=== PATIENT | male | born 1950 | race Caucasian/White ===

== ENCOUNTER 2017-11-24 21:40 | Inpatient (IN) ==
[2017-11-24] MEDS ORDERED: *HR* OxyCODONE Immed Rel 5 MG TABLET PO PRN (23:48)
[2017-11-24] MEDS ORDERED: D5% in Water 1,000 ML IVC PRN (23:58)
[2017-11-24] MEDS ORDERED: Dextrose Gel 15 GM/37.5 ML TUBE PO PRN ×2 (23:58)
[2017-11-24] MEDS ORDERED: *HR* Dextrose 50 % in Water (Syg) 50 ML SYRINGE IVP PRN (23:58)
[2017-11-25] MEDS: Gabapentin 300 MG CAPSULE PO SCH ×4 (00:22→21:07)
--- NOTE | 2017-11-25 00:32 | Internal Med History&Physical ---
Date of Encounter: 11/24/17 Time of Encounter: 00:26 Assessment and Plan (1) Status post total hip replacement, right Current visit: Yes Status: Acute Patient status post right hip replacement for nondisplaced femoral neck fracture. Surgery per Dr. Herrera 11/17/17. Postoperatively he had acute blood loss anemia, acute kidney injury, and pneumonia. Now he is medically stable and starting therapies and are Rehab Unit. We are monitoring his pain control. Dr. Curry will be consulted as well as the usual therapies. (2) History of pneumonia Current visit: Yes Status: Acute Hit by basilar pneumonia and hypoxia postoperatively. He now has clear lungs and a stable respiratory ortega. She was sent was on Augmentin. Incentive spirometer encouraged. (3) Acute kidney injury Current visit: Yes Status: Resolved Patient sustained acute kidney injury postoperatively. Now his creatinine is back to normal/failure resolved. We will continue to monitor. Avoid nephrotoxic medications. (4) Diabetes mellitus Current visit: Yes Status: Chronic Patient history of diabetes chronically and his last glycohemoglobin was 7.6%. We will continue his current medication dose. His creatinine is back to normal and his metformin is restarted. We will monitor with Accu-Cheks. Diabetic diet. Qualifiers: Diabetes mellitus type: type 2 Diabetes mellitus terminal gauger supervisor insulin use: without terminal gauger supervisor use Diabetes mellitus complication status: with unspecified complications Qualified Code(s): E11.8 - Type 2 diabetes mellitus with unspecified complications (5) Hypertension Current visit: Yes Status: Chronic History of hypertension and is under good control. Continue same medications. Qualifiers: Hypertension type: essential hypertension Qualified Code(s): I10 - Essential (primary) hypertension (6) History of heart artery stent Current visit: Yes Status: Chronic History coronary artery disease and previous coronary stent placed in . He has had no angina or CHF findings. 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 (7) Acute blood loss anemia Current visit: Yes Status: Acute He states he has had at least 3 units of blood transfused. I do not discharge summary from his hospitalization yet. His morning hemoglobin 8.7 up from 7.7 yesterday. We will continue to monitor. No obvious GI bleeding source. Likely postoperative and has extensive bruising in the right lower extremity. (8) DVT prophylaxis Current visit: Yes Status: Acute Patient was transferred to us on no DVT prophylaxis. I will start Lovenox. I will check with Dr. Herrera to see what he likes to use postoperatively for hip replacements Internal Medicine - H&P: HPI Chief complaint: I am here for rehabilitation after my hip replacement Admitted From: Hospital to Hospital Transfer Plans for Post Hospital Care: Home History of present illness: Mr. Gutierrez is a 66 year old male with known history of [id number] diabetes, CAD and previous stent placement, hypertension and sleep apnea is transferred to our rehab facility status post total right hip replacement for hip fracture. When I saw him in 10/20/17 for checkup regarding his diabetes and heart problems. Having severe groin pain told something month earlier. No history of trauma. However, after referral to sports medicine he had an MRI which showed fracture of the right femoral neck. He underwent hip surgery by Dr. Herrera on 11/17/17. However, postoperatively had complications of acute kidney injury with his creatinine going from 1.0 to 2.96 before resolving back to 0.98. He had had ibuprofen prior to surgery and also nephrology felt this was related to his surgery hydration status. He then developed bibasilar pneumonia with fever 102 and hypoxia. He was an IV antibiotics. He made improvement from his acute kidney injury and the pneumonia. He was transferred to our facility last evening have her having had his third unit of blood. He had workup to exclude GI source. He thinks that he is getting along well. He is able to ambulate with a walker. He has occasional spasms particularly the right anterior thigh. He thinks his pain is otherwise been under fairly good control. He denies any cardiac, respiratory, GI or symptoms currently. He lives in a single floor home with about 3 steps to enter. He was recently hired as a beauty school instructor. His history of known heart disease but underwent a stress test prior to being hired for bus physical or this year. Past Med Surg Social Fam HX - Past Medical History Medical history: arthritis, coronary artery disease (Stent placement 2002, another heart catheter 2006, negative nuclear stress test 2017), diabetes, GI bleed, hyperlipidemia, hypertension, myocardial infarction Additional medical history: [place] 2002 with stent placement, sleep apnea-waers CPAP at night Psychiatric history: depression - Past Surgical History Surgical History: appendectomy, herniorrhaphy, orthopedic, other, other ( Coronary artery stent 2002) Additional surgical history: bilat shoulder replacements, left knee replacement - Social History Smoking Status: Former smoker Smokeless Tobacco Status: No Alcohol use: none Drug use: none Occupational status: employed (Employed as a beauty school instructor starting this year) Activity Level: Uses cane/walker ( since his surgery) - Family History Mother Living Status: Age at : 82 Cause of : Colon cancer, breast cancer Hx Family Cancer: Yes (colon cancer) Father Living Status: Age at : 72 Cause of : Heart disease, diabetes Hx Family Endocrine Disorder: Yes (DM) Internal Medicine - H&P: Meds Allopurinol [Zyloprim] 300 mg PO HS 11/17/17 [History] Atorvastatin Calcium [Lipitor] 40 mg PO HS 11/17/17 [History] Citalopram Hydrobromide [Citalopram HBr] 20 mg PO HS 11/17/17 [History] Clopidogrel Bisulfate [Plavix] 75 mg PO HS 11/17/17 [History] Cyclobenzaprine HCl 5 mg PO HS PRN 11/17/17 [History] Gabapentin [Neurontin] 600 mg PO TID 11/17/17 [History] Hyoscyamine Sulfate [Hyoscyamine Sulfate ER] 0.375 mg PO BID 11/17/17 [History] Losartan Potassium [Cozaar] 50 mg PO BID 11/17/17 [History] Metformin HCl [Glucophage] 1,000 mg PO BID 11/17/17 [History] Metoprolol Succinate 100 mg PO DAILY 11/17/17 [History] Multivitamin [One Daily Multivitamin] 1 tab PO DAILY 11/17/17 [History] Pantoprazole Sodium [Protonix] 40 mg PO HS 11/17/17 [History] Docusate [Colace] 100 mg PO BID capsule 11/19/17 [Rx] OxyCODONE Immed Rel [Roxicodone 5 MG] 5 mg PO Q6HR PRN 7 Days #28 tablet [Rx] Amoxicillin/Clavulanate [Augmentin] 500 mg PO Q8H 7 Days #21 tablet 11/22/17 [Rx ] Ferrous Sulfate 325 mg PO BID 11/24/17 [History] 3 Allergy/AdvReac Type Severity Reaction Status Date / Time lisinopril Allergy Cough Verified 08/09/15 07:25 - Constitutional Constitutional: no chills, no fever(s) - EENT Eyes: no change in vision Nose, mouth and throat: no dry mouth, no sore throat - Cardiovascular Cardiovascular ROS IM: no chest pain, no diaphoresis, no dyspnea, no dyspnea on exertion, no irregular heart rhythm, no lightheadedness - Respiratory Respiratory: no dyspnea, no hemoptysis, no dyspnea on exertion, no excessive phlegm production - Gastrointestinal Gastrointestinal: constipation (He has had constipation postoperatively.), no diarrhea, no hematemesis, no hematochezia, no melena - Genitourinary Genitourinary ROS male: no dysuria - Musculoskeletal Additional comments: He has pain in the right lateral hip postoperative area, but he also has pain and spasm in the right anterior thigh. He denies any drainage from his incision site/dressing. - Integumentary Integumentary IM: unusual bruising (He has bruising extending along the right lower extremity.), no rash - Neurological Neurological ROS: no abnormal speech, no confusion, no memory loss - Psychiatric Psychiatric: depression (He has depression which is controlled with medication.) , no anxiety - Constitutional Vitals: Temp Pulse Resp BP Pulse Ox 98.1 F 76 16 141/72 96 11/25/17 00:00 11/25/17 00:00 11/25/17 00:00 11/25/17 00:00 11/25/17 00:00 General appearance: Present: mild distress, A&O X 3, pleasant, obese, answers questions appropriately - Head Head exam: Present: atraumatic - Eye Eye exam: Present: conjunctival injection (Mild left conjunctival injection with purulent drainage), EOMI. Absent: nystagmus Pupils: Present: normal accommodation - Neck Neck exam general surgery: Absent: lymphadenopathy, nuchal rigidity, thyromegaly - Respiratory Respiratory exam: Present: decreased breath sounds, CTAB. Absent: respiratory distress, rhonchi, wheezes - Cardiovascular Cardiovascular exam: Present: RRR, +S1, +S2 - GI/Abdominal GI/Abdominal exam: Present: soft. Absent: hepatomegaly, tenderness - Extremities Exam Extremities exam: Present: pedal edema (Moderate amount of pedal and ankle edema on the right side). Absent: calf tenderness Additional comments: Right posterior lateral upper thigh and buttock shows transverse scar with honeycomb dressing. Small amount of dried blood in the posterior aspect. Right lower extremity shows linear bruising along the thigh and lateral lower leg and calf. No skin breakdown. Mild edema of the skin. Left lower extremity shows previous knee replacement scar. No calf tenderness. No heel breakdown. - Incison Comments: Honeycomb dressing intact. Small amount of dried blood in the posterior lateral aspect. Otherwise very appropriate. - Neurological Exam Neurological exam: Present: CN II-XII intact, oriented X3, no focal deficits Internal Med - H&P Results - Labs CBC & Chem 7: 11/25/17 06:18 11/25/17 06:18
[2017-11-25] MEDS: *HR* OxyCODONE Immed Rel 5 MG TABLET PO PRN ×4 (04:10→21:06)
[2017-11-25] MEDS: *HR* OxyCODONE Immed Rel 5 MG TABLET PO SCH ×2 (05:58→16:43)
[2017-11-25 06:28] LABS: Basophils % 0.3 %; Eosinophils # 0.2 K/mcL (0.0-0.6); Eosinophils % 2.1 %; Hemoglobin 8.7 g/dL (12.9-16.9); Immature Granulocytes % 1.3 % (0-4); Lymphocytes # 1.1 K/mcL (0.6-4.6); Lymphocytes % 14.4 %; Mean Corpuscular HGB Conc 33.5 g/dL (31.6-35.5); Mean Corpuscular Hemoglobin 29.4 pg (28.0-33.3); Mean Corpuscular Volume 87.8 fL (83.0-100.0); Mean Platelet Volume 8.5 fL (9.4-12.4); Monocytes # 0.5 K/mcL (0.0-1.3); Monocytes % 6.2 %; Neutrophils # 5.9 K/mcL (1.6-8.9); Nucleated Red Blood Cells 0.3 /100 WBC (0); Platelet Count 145 K/mcL (140-400); Red Blood Count 2.96 M/mcL (4.19-5.50); Red Cell Distribution Width 15.9 % (11.5-14.5); Segmented Neutrophils % 75.7 %
[2017-11-25 06:45] LABS: BUN/Creatinine Ratio 18 (6-26); Blood Urea Nitrogen 18 mg/dL (8-23); Calcium 8.6 mg/dL (8.6-10.3); Carbon Dioxide 26 mEq/L (23-29); Chloride 101 mEq/L (98-107); Glucose 141 mg/dL (70-105); Osmolality,Calculated 282 (280-300); Potassium 4.1 mEq/L (3.5-5.1); Sodium 134 mEq/L (136-145); eGFR For Non-African Americans > 60 (> 60)
[2017-11-25] MEDS: Amoxicillin/Clavulanate 500 MG TABLET PO SCH ×2 (08:39→17:10)
[2017-11-25] MEDS: *HR* Metformin 500 MG TABLET PO SCH ×2 (08:39→21:04)
[2017-11-25] MEDS: Metoprolol XL (24 HR) Succ 50 MG TAB.ER.24H PO SCH (08:40)
[2017-11-25] MEDS: Multivit/Ca/Min/Fe/FA 1 TAB TABLET PO SCH (08:40)
[2017-11-25] MEDS ORDERED: HYOSCYAMINE SULFATE PO SCH (09:00)
[2017-11-25] MEDS: Hyoscyamine SL 0.125 MG TAB.SUBL SL SCH ×2 (11:22→21:07)
--- NOTE | 2017-11-25 20:31 | Event Note ---
Date of Encounter: 11/25/17 Time of Encounter: 20:30 Patient was seen just after midnight earlier today. Follow-up visit today shows hemoglobin went from 7.7 8.7. His lungs are clear no respiratory symptoms. No cardiac symptoms and has regular rate and rhythm with 1/6 systolic murmur. His right lateral thigh shows honeycomb dressing without any new bleeding redness or signs of infection. Has extensive bruising in the right lower extremity. He is ambulating appropriately well with a walker. Earlier today he had severe muscle spasm in the right anterior thigh, now improved with cyclobenzaprine use. Patient states that he has developed loose stools and was incontinent. Previously he was constipated. We will hold his stool softeners. Follow-up hemoglobin in the morning.
[2017-11-26] MEDS: Amoxicillin/Clavulanate 500 MG TABLET PO SCH ×3 (01:12→17:42)
[2017-11-26] MEDS: *HR* OxyCODONE Immed Rel 5 MG TABLET PO PRN ×4 (01:12→20:33)
[2017-11-26] MEDS: *HR* Enoxaparin 40 MG/0.4 ML SYRINGE SQ SCH (05:19)
--- NOTE | 2017-11-26 07:48 | Internal Med Progress Note ---
Date of Encounter: 11/26/17 Time of Encounter: 07:48 - Assessment and plan (1) Status post total hip replacement, right Current Visit: Yes Status: Acute Assessment and plan: Patient is doing well with PT and OT. He is walking to the dining room. He likely needs to take his prn pain medication more frequently. He has cyclobenzaprine for spasm in his right thigh. Continue with his therapies. (2) History of pneumonia Current Visit: Yes Status: Acute Assessment and plan: His lungs are clear. He continues with his oral antibiotic as follow-up for his pneumonia postoperatively. (3) Acute kidney injury Current Visit: Yes Status: Resolved Assessment and plan: Previous acute kidney injury now resolved. (4) Diabetes mellitus Current Visit: Yes Status: Chronic Assessment and plan: His sugars are being monitored and they are mildly elevated. Continue current treatment. Qualifiers: Diabetes mellitus type: type 2 Diabetes mellitus fci insulin use: without long term care pharmacist use Diabetes mellitus complication status: with unspecified complications Qualified Code(s): E11.8 - Type 2 diabetes mellitus with unspecified complications (5) Hypertension Current Visit: Yes Status: Chronic Assessment and plan: Long-standing history of hypertension under adequate control. Qualifiers: Hypertension type: essential hypertension Qualified Code(s): I10 - Essential (primary) hypertension (6) History of heart artery stent Current Visit: Yes Status: Chronic Assessment and plan: No angina or CHF. (7) Acute blood loss anemia Current Visit: Yes Status: Acute Assessment and plan: Postop anemia and received 2 or 3 blood transfusions. Last hemoglobin 8.7. Follow-up again tomorrow. No obvious GI bleeding source or symptoms. Extensive bruising in his right thigh. (8) DVT prophylaxis Current Visit: Yes Status: Acute - Subjective Interval history: Patient feels that he is getting better, but still has significant amount of pain. It sounds like he is not asking for his prn analgesia once the day starts. His loose bowel movements are improving. He did have an episode of incontinence when he "grunts" when he is doing his therapies etc. Definitely improved. No blood per rectum. No cardiac respiratory symptoms. He slept well through the night. Appetite is good. - Constitutional Vitals: Temp Pulse Resp BP Pulse Ox 98.3 F 70 16 119/53 94 11/26/17 06:43 11/26/17 06:43 11/26/17 06:43 11/26/17 06:43 11/26/17 06:43 General appearance: Present: A&O X 3, pleasant, obese, answers questions appropriately Exam: He is sitting up eating breakfast in the dining room - Respiratory Respiratory exam: Present: CTAB - Cardiovascular Cardiovascular exam: Present: RRR, +S1, +S2 Internal Medicine: Result - Labs CBC & Chem 7: 11/25/17 06:18 11/25/17 06:18 Consult Discharge Plan - Plan Referrals: Dejan Meehan MD [Primary Care Provider] -
[2017-11-26] MEDS: *HR* OxyCODONE Immed Rel 5 MG TABLET PO SCH (08:27)
[2017-11-26] MEDS: Hyoscyamine SL 0.125 MG TAB.SUBL SL SCH ×2 (08:27→20:31)
[2017-11-26] MEDS: *HR* Metformin 500 MG TABLET PO SCH ×2 (08:27→20:32)
[2017-11-26] MEDS: Metoprolol XL (24 HR) Succ 50 MG TAB.ER.24H PO SCH (08:28)
[2017-11-26] MEDS: Gabapentin 300 MG CAPSULE PO SCH ×3 (08:28→20:31)
[2017-11-26] MEDS: Multivit/Ca/Min/Fe/FA 1 TAB TABLET PO SCH (08:28)
[2017-11-26] MEDS ORDERED: Ondansetron ODT 4 MG TAB.RAPDIS SL ONE (09:29)
--- NOTE | 2017-11-26 16:38 | Physcial Medicine-Consult Note ---
Date of Encounter: 11/26/17 Time of Encounter: 16:33 Physical Medicine - AP (1) Status post total hip replacement, right Comments: He is having significant rest painthat is worse with standing. He is fully participating in therapies. Status: Acute Assessment and plan: Continue rehab. NOHEMI downey. Code(s): Z96.641 - Presence of right artificial hip joint SNOMED Code(s): 231937134467 Physical Medicine - HPI - Data of Consult Requesting Physician: Dejan Meehan MD Primary Care Provider: Dejan Meehan MD - Consult Narrative History of present illness: Mr. Gutierrez is a 66 year old RH male with [id number] diabetes, CAD and previous stent placement, hypertension and sleep apnea complained of having severe groin pain a month earlier. No history of trauma. After referral to sports medicine he had an MRI which showed fracture of the right femoral neck. He underwent hip surgery by Dr. Herrera on 11/17/17. Postoperatively, he had complications of acute kidney injury with his creatinine going from 1.0 to 2.96 before resolving back to 0.98. He had had ibuprofen prior to surgery and also nephrology felt this was related to his surgery hydration status. He then developed bibasilar pneumonia with fever 102 and hypoxia. He was an IV antibiotics. He made improvement from his acute kidney injury and the pneumonia. He was transferred to our facility last evening have her having had his third unit of blood. He had workup to exclude GI source. CC: Dejan Meehan MD Past Med Surg Social Fam HX - Past Medical History Medical history: arthritis, coronary artery disease (Stent placement 2002, another heart catheter 2006, negative nuclear stress test 2017), diabetes, GI bleed, hyperlipidemia, hypertension, myocardial infarction Additional medical history: [place] 2003 with stent placement, sleep apnea-waers CPAP at night Psychiatric history: depression - Past Surgical History Surgical History: appendectomy, herniorrhaphy, orthopedic, other, other ( Coronary artery stent 2002) Additional surgical history: bilat shoulder replacements, left knee replacement - Social History Smoking Status: Former smoker Smokeless Tobacco Status: No Alcohol use: none Drug use: none - Family History Mother Living Status: Age at : 82 Cause of : Colon cancer, breast cancer Hx Family Cancer: Yes (colon cancer) Father Living Status: Age at : 72 Cause of : Heart disease, diabetes Hx Family Endocrine Disorder: Yes (DM) Medications and Allergies Allopurinol [Zyloprim] 300 mg PO HS 11/17/17 [History] Atorvastatin Calcium [Lipitor] 40 mg PO HS 11/17/17 [History] Citalopram Hydrobromide [Citalopram HBr] 20 mg PO HS 11/17/17 [History] Clopidogrel Bisulfate [Plavix] 75 mg PO HS 11/17/17 [History] Cyclobenzaprine HCl 5 mg PO HS PRN 11/17/17 [History] Gabapentin [Neurontin] 600 mg PO TID 11/17/17 [History] Hyoscyamine Sulfate [Hyoscyamine Sulfate ER] 0.375 mg PO BID 11/17/17 [History] Losartan Potassium [Cozaar] 50 mg PO BID 11/17/17 [History] Metformin HCl [Glucophage] 1,000 mg PO BID 11/17/17 [History] Metoprolol Succinate 100 mg PO DAILY 11/17/17 [History] Multivitamin [One Daily Multivitamin] 1 tab PO DAILY 11/17/17 [History] Pantoprazole Sodium [Protonix] 40 mg PO HS 11/17/17 [History] Docusate [Colace] 100 mg PO BID capsule 11/19/17 [Rx] OxyCODONE Immed Rel [Roxicodone 5 MG] 5 mg PO Q6HR PRN 7 Days #28 tablet [Rx] Amoxicillin/Clavulanate [Augmentin] 500 mg PO Q8H 7 Days #21 tablet 11/22/17 [Rx ] Ferrous Sulfate 325 mg PO BID 11/24/17 [History] 3 Allergy/AdvReac Type Severity Reaction Status Date / Time lisinopril Allergy Cough Verified 08/09/15 07:25 All systems: reviewed and no additional remarkable complaints except as stated Physical Medicine - Exam - Constitutional Vitals: Temp Pulse Resp BP Pulse Ox 98.1 F 87 16 110/65 96 11/26/17 10:00 11/26/17 10:00 11/26/17 10:00 11/26/17 10:00 11/26/17 10:00 General appearance: average body habitus, cooperative, mild distress - Head Head exam: Present: atraumatic, normocephalic - Eye Eye exam: Present: EOMI - ENT ENT exam: Present: mucous membranes moist, normal oropharynx - Neck Neck exam: Present: full ROM - Respiratory Respiratory exam: Present: CTAB - Cardiovascular Cardiovascular exam: Present: RRR - GI/Abdominal GI/Abdominal exam: Present: normal bowel sounds, soft - Extremities Exam Extremities exam: Present: calf tenderness. Absent: full ROM Additional comments: He does not have antigravity right hip flexion. Distal strength is good. 2+ edema BLE's mild calf superficial soreness. He said he had venous US at [place] which was negative. - Neurological Exam Neurological exam: Present: abnormal gait, alert, oriented X3 Additional comments: Sensation intact in all extremities. - Psychiatric Psychiatric exam: Present: normal affect, normal mood - Skin Additional comments: Right hip incision CDI Physical Medicine - Results - Labs CBC & Chem 7: 11/25/17 06:18 11/25/17 06:18 Labs: Acute surgical blood loss anemia Hyponatremia, Hyperglycemia. Consult Discharge Plan - Plan Referrals: Dejan Meehan MD [Primary Care Provider] -
[2017-11-27] MEDS: *HR* OxyCODONE Immed Rel 5 MG TABLET PO PRN ×4 (00:23→19:58)
[2017-11-27] MEDS: Amoxicillin/Clavulanate 500 MG TABLET PO SCH ×3 (00:23→17:57)
[2017-11-27 05:31] LABS: Basophils % 0.2 %; Eosinophils # 0.2 K/mcL (0.0-0.6); Eosinophils % 2.6 %; Hemoglobin 8.4 g/dL (12.9-16.9); Lymphocytes # 1.4 K/mcL (0.6-4.6); Lymphocytes % 24.2 %; Mean Corpuscular HGB Conc 32.3 g/dL (31.6-35.5); Mean Corpuscular Hemoglobin 29.1 pg (28.0-33.3); Mean Platelet Volume 8.6 fL (9.4-12.4); Monocytes # 0.4 K/mcL (0.0-1.3); Monocytes % 6.9 %; Neutrophils # 3.8 K/mcL (1.6-8.9); Platelet Count 171 K/mcL (140-400); Red Blood Count 2.89 M/mcL (4.19-5.50); Red Cell Distribution Width 16.2 % (11.5-14.5); Segmented Neutrophils % 65.1 %
[2017-11-27] MEDS: *HR* Enoxaparin 40 MG/0.4 ML SYRINGE SQ SCH (05:55)
[2017-11-27] MEDS: *HR* OxyCODONE Immed Rel 5 MG TABLET PO SCH (09:19)
[2017-11-27] MEDS: *HR* Metformin 500 MG TABLET PO SCH ×2 (09:37→20:32)
[2017-11-27] MEDS: Gabapentin 300 MG CAPSULE PO SCH ×3 (09:37→20:32)
[2017-11-27] MEDS: Hyoscyamine SL 0.125 MG TAB.SUBL SL SCH ×2 (09:37→20:32)
[2017-11-27] MEDS: Multivit/Ca/Min/Fe/FA 1 TAB TABLET PO SCH (09:37)
[2017-11-27] MEDS: Metoprolol XL (24 HR) Succ 50 MG TAB.ER.24H PO SCH (09:37)
--- NOTE | 2017-11-27 13:32 | Internal Med Progress Note ---
Date of Encounter: 11/27/17 Time of Encounter: 13:27 - Assessment and plan (1) Status post total hip replacement, right Current Visit: No Status: Acute Assessment and plan: He is here for rehabilitation he did have some pain this morning compared to spin rehabilitation at is gotten better when he took his pain medicine and he did his rehabilitation this afternoon. (2) Diabetes mellitus Current Visit: Yes Status: Chronic Assessment and plan: He is on Glucophage. Qualifiers: Diabetes mellitus type: type 2 Diabetes mellitus detention insulin use: without dye box operator use Diabetes mellitus complication status: with unspecified complications Qualified Code(s): E11.8 - Type 2 diabetes mellitus with unspecified complications (3) Hypertension Current Visit: Yes Status: Chronic Assessment and plan: Stable on his home medication Qualifiers: Hypertension type: essential hypertension Qualified Code(s): I10 - Essential (primary) hypertension (4) History of heart artery stent Current Visit: Yes Status: Chronic Assessment and plan: He does not have any current angina or chest pain. He is on a beta carolynn and Plavix (5) Hyperlipidemia Current Visit: No Status: Chronic Qualifiers: Hyperlipidemia type: unspecified Qualified Code(s): E78.5 - Hyperlipidemia , unspecified (6) Gout Current Visit: No Status: Chronic Assessment and plan: Not a current issue this admission Qualifiers: Gout site: unspecified site Gout etiology: unspecified cause Chronicity: chronic Presence of tophus: without tophus Qualified Code(s): M1A.9XX0 - Chronic gout, unspecified, without tophus (tophi) (7) GERD (gastroesophageal reflux disease) Current Visit: No Status: Chronic Assessment and plan: Stable on omeprazole Qualifiers: Esophagitis presence: esophagitis presence not specified Qualified Code(s) : K21.9 - Gastro-esophageal reflux disease without esophagitis (8) Acute kidney injury Current Visit: No Status: Resolved Assessment and plan: It is back at baseline. (9) Pneumonia Current Visit: No Status: Acute Assessment and plan: He is currently on Augmentin. He does not have a cough he is not short of breath he is not running a fever Qualifiers: Pneumonia type: due to unspecified organism Laterality: bilateral Lung location: lower lobe of lung Qualified Code(s): J18.1 - Lobar pneumonia, unspecified organism (10) DVT prophylaxis Current Visit: Yes Status: Acute Assessment and plan: Lovenox NOHEMI hose. - Subjective Interval history: He had some significant pain this morning. He did get his pain medicines he took a nap and then he felt better he did participate in therapy this afternoon he was unable to do that this morning due to the pain. He has not been dizzy he has not been short of breath he denies nausea vomiting he denies diarrhea bowels are okay. He denies coughing - Constitutional Vitals: Temp Pulse Resp BP Pulse Ox 98.5 F 77 16 107/71 91 11/27/17 07:19 11/27/17 07:19 11/27/17 07:19 11/27/17 07:19 11/27/17 07:19 General appearance: Present: A&O X 3, pleasant, obese, answers questions appropriately - Head Head exam: Present: atraumatic, normocephalic - Neck Neck exam general surgery: Present: full ROM, supple, trachea midline. Absent: lymphadenopathy - Respiratory Respiratory exam: Present: CTAB - Cardiovascular Cardiovascular exam: Present: RRR, +S1, +S2. Absent: systolic murmur - GI/Abdominal GI/Abdominal exam: Present: normal bowel sounds, soft, no peritoneal signs. Absent: guarding, tenderness - Extremities Exam Extremities exam: Present: pedal edema (Wearing NOHEMI hose bilaterally. He does have a lot of ecchymosis of the right thigh.) - Incison Incision: Present: intact, approximated (There is old blood on the honeycomb dressing. There is no new drainage). Absent: erythema - Skin Skin exam: Present: rash. Absent: dry Internal Medicine: Result - Labs CBC & Chem 7: 11/27/17 05:20 11/25/17 06:18 Labs: Short CBC 11/27/17 Range/Units 05:20 WBC 5.8 (4.3-11.1) K/mcL Hgb 8.4 L (12.9-16.9) g/dL Hct 26.0 L (37.5-50.1) % Plt Count 171 (140-400) K/mcL Neutrophils # 3.8 (1.6-8.9) K/mcL - VTE Documentation of Mechanical Device: Graduated compression elastic hosiery Consult Discharge Plan - Plan Referrals: Dejan Meehan MD [Primary Care Provider] -
[2017-11-28] MEDS: Amoxicillin/Clavulanate 500 MG TABLET PO SCH ×3 (01:13→16:35)
[2017-11-28] MEDS: *HR* OxyCODONE Immed Rel 5 MG TABLET PO PRN ×3 (01:45→20:18)
[2017-11-28] MEDS: *HR* Enoxaparin 40 MG/0.4 ML SYRINGE SQ SCH (05:01)
[2017-11-28] MEDS: Metoprolol XL (24 HR) Succ 50 MG TAB.ER.24H PO SCH (08:56)
[2017-11-28] MEDS: Gabapentin 300 MG CAPSULE PO SCH ×3 (08:56→20:27)
[2017-11-28] MEDS: Hyoscyamine SL 0.125 MG TAB.SUBL SL SCH ×2 (08:56→20:30)
[2017-11-28] MEDS: Multivit/Ca/Min/Fe/FA 1 TAB TABLET PO SCH (08:56)
[2017-11-28] MEDS: *HR* OxyCODONE Immed Rel 5 MG TABLET PO SCH (08:57)
[2017-11-28] MEDS: *HR* Metformin 500 MG TABLET PO SCH ×2 (08:58→16:35)
--- NOTE | 2017-11-28 11:46 | Internal Med Progress Note ---
Date of Encounter: 11/28/17 Time of Encounter: 11:44 - Assessment and plan (1) Status post total hip replacement, right Current Visit: Yes Status: Acute Assessment and plan: He is here for rehabilitation his pain is better now (2) Diabetes mellitus Current Visit: Yes Status: Chronic Assessment and plan: He is on Glucophage. Qualifiers: Diabetes mellitus type: type 2 Diabetes mellitus meterman insulin use: without meterman use Diabetes mellitus complication status: with unspecified complications Qualified Code(s): E11.8 - Type 2 diabetes mellitus with unspecified complications (3) Hypertension Current Visit: Yes Status: Chronic Assessment and plan: Stable on his home medication Qualifiers: Hypertension type: essential hypertension Qualified Code(s): I10 - Essential (primary) hypertension (4) History of heart artery stent Current Visit: Yes Status: Chronic Assessment and plan: He does not have any current angina or chest pain. He is on a beta carolynn and Plavix (5) Hyperlipidemia Current Visit: No Status: Chronic Assessment and plan: cont lipitor Qualifiers: Hyperlipidemia type: unspecified Qualified Code(s): E78.5 - Hyperlipidemia , unspecified (6) Gout Current Visit: No Status: Chronic Assessment and plan: Not a current issue this admission Qualifiers: Gout site: unspecified site Gout etiology: unspecified cause Chronicity: chronic Presence of tophus: without tophus Qualified Code(s): [id number].[id number] - Chronic gout, unspecified, without tophus (tophi) (7) GERD (gastroesophageal reflux disease) Current Visit: No Status: Chronic Assessment and plan: Stable on omeprazole Qualifiers: Esophagitis presence: esophagitis presence not specified Qualified Code(s) : K21.9 - Gastro-esophageal reflux disease without esophagitis (8) Acute kidney injury Current Visit: No Status: Resolved Assessment and plan: It is back at baseline. will check wednesday (9) Pneumonia Current Visit: No Status: Acute Assessment and plan: He is currently on Augmentin. He does not have a cough he is not short of breath he is not running a fever Qualifiers: Pneumonia type: due to unspecified organism Laterality: bilateral Lung location: lower lobe of lung Qualified Code(s): J18.1 - Lobar pneumonia, unspecified organism (10) DVT prophylaxis Current Visit: Yes Status: Acute Assessment and plan: Lovenox NOHEMI hose.but will try knee - Subjective Interval history: pain is better today got a shower n o cp He has not been dizzy he has not been short of breath he denies nausea vomiting he denies diarrhea bowels are okay. He denies coughing - Constitutional Vitals: Temp Pulse Resp BP Pulse Ox 98.2 F 73 16 111/65 100 11/28/17 07:11 11/28/17 07:11 11/28/17 07:11 11/28/17 07:11 11/28/17 07:11 General appearance: Present: A&O X 3, pleasant, obese, answers questions appropriately - Head Head exam: Present: atraumatic, normocephalic - Neck Neck exam general surgery: Present: supple, trachea midline. Absent: lymphadenopathy - Respiratory Respiratory exam: Present: CTAB - Cardiovascular Cardiovascular exam: Present: RRR, +S1, +S2. Absent: systolic murmur - GI/Abdominal GI/Abdominal exam: Present: normal bowel sounds, soft, no peritoneal signs. Absent: distended, guarding, tenderness - Extremities Exam Extremities exam: Present: normal capillary refill (just out of the shower teds off ), pedal edema - Incison Incision: Present: intact, approximated. Absent: red (no change in old blood on honeycomb) - Skin Skin exam: Present: dry, warm. Absent: rash Internal Medicine: Result - Labs CBC & Chem 7: 11/27/17 05:20 11/25/17 06:18 - VTE Documentation of Mechanical Device: Graduated compression elastic hosiery Consult Discharge Plan - Plan Referrals: Dejan Meehan MD [Primary Care Provider] -
[2017-11-29] MEDS: Amoxicillin/Clavulanate 500 MG TABLET PO SCH ×3 (01:08→17:55)
[2017-11-29] MEDS: *HR* OxyCODONE Immed Rel 5 MG TABLET PO PRN ×4 (01:11→21:19)
[2017-11-29] MEDS: *HR* Enoxaparin 40 MG/0.4 ML SYRINGE SQ SCH (05:25)
[2017-11-29 05:54] LABS: Basophils % 0.3 %; Eosinophils # 0.2 K/mcL (0.0-0.6); Eosinophils % 2.5 %; Hematocrit 28.7 % (37.5-50.1); Hemoglobin 9.4 g/dL (12.9-16.9); Immature Granulocytes % 0.9 % (0-4); Lymphocytes # 1.6 K/mcL (0.6-4.6); Lymphocytes % 23.4 %; Mean Corpuscular HGB Conc 32.8 g/dL (31.6-35.5); Mean Corpuscular Hemoglobin 29.6 pg (28.0-33.3); Mean Corpuscular Volume 90.3 fL (83.0-100.0); Mean Platelet Volume 8.7 fL (9.4-12.4); Monocytes # 0.4 K/mcL (0.0-1.3); Monocytes % 6.4 %; Neutrophils # 4.6 K/mcL (1.6-8.9); Platelet Count 227 K/mcL (140-400); Red Blood Count 3.18 M/mcL (4.19-5.50); Red Cell Distribution Width 16.7 % (11.5-14.5); Segmented Neutrophils % 66.5 %
[2017-11-29 06:23] LABS: BUN/Creatinine Ratio 14 (6-26); Blood Urea Nitrogen 12 mg/dL (8-23); Carbon Dioxide 28 mEq/L (23-29); Chloride 101 mEq/L (98-107); Glucose 138 mg/dL (70-105); Osmolality,Calculated 286 (280-300); Potassium 4.2 mEq/L (3.5-5.1); Sodium 137 mEq/L (136-145); eGFR For Non-African Americans > 60 (> 60)
--- NOTE | 2017-11-29 07:37 | Internal Med Progress Note ---
Date of Encounter: 11/29/17 Time of Encounter: 07:32 - Assessment and plan (1) Status post total hip replacement, right Current Visit: Yes Status: Acute Assessment and plan: He is advancing with his therapies. He is doing well this morning. We discussed his muscle relaxer and opiate analgesia use to optimize it. I spoke with the nurse about that as well. Continue with his therapies. Incision looks good. (2) History of pneumonia Current Visit: Yes Status: Acute Assessment and plan: His lungs are clear. No respiratory symptoms. He continues with his oral Augmentin finishing up a course of treatment for his postop pneumonia. (3) Acute kidney injury Current Visit: Yes Status: Resolved Assessment and plan: Renal function is back to baseline. (4) Diabetes mellitus Current Visit: Yes Status: Chronic Assessment and plan: Sugars are under adequate control. Qualifiers: Diabetes mellitus type: type 2 Diabetes mellitus oysterman insulin use: without alf use Diabetes mellitus complication status: with unspecified complications Qualified Code(s): E11.8 - Type 2 diabetes mellitus with unspecified complications (5) Hypertension Current Visit: Yes Status: Chronic Assessment and plan: blood pressure under good Qualifiers: Hypertension type: essential hypertension Qualified Code(s): I10 - Essential (primary) hypertension (6) History of heart artery stent Current Visit: Yes Status: Chronic Assessment and plan: No angina or CHF noted. (7) Acute blood loss anemia Current Visit: Yes Status: Acute Assessment and plan: His postop anemia has improved. It is now up to 9.4. (8) DVT prophylaxis Current Visit: Yes Status: Acute - Subjective Interval history: Patient states that he feels much better today. Wednesday he had a rough day and felt he was not getting his pain medication on time. Yesterday he was better. This morning he is up, dressed and feels ready to start the day. He denies any chest pain, palpitation, respiratory problems, GI or problems. His bowels are moving normally. He feels that the Flexeril/cyclobenzaprine does a lot of good for his pain. Typically he is only needing the opiate about twice a day. I told him he may need to ask for that more often than not let the pain gets severe - Constitutional Vitals: Temp Pulse Resp BP Pulse Ox 98.1 F 74 18 147/73 97 11/29/17 06:59 11/29/17 06:59 11/29/17 06:59 11/29/17 06:59 11/29/17 06:59 General appearance: Present: A&O X 3, pleasant, obese, answers questions appropriately - Respiratory Respiratory exam: Present: CTAB - Cardiovascular Cardiovascular exam: Present: RRR, +S1, +S2 - Extremities Exam Extremities exam: Absent: calf tenderness, tenderness Additional comments: Resolving bruising noted on the lateral thigh and calf as well as sacral area. - Incison Comments: The honeycomb dressing is intact with clear overlay. There are 2 spots of old dried blood. There is no surrounding redness. There is no particular tenderness. It looks good. Internal Medicine: Result - Labs CBC & Chem 7: 11/29/17 05:30 11/29/17 05:30 Labs: Short CBC 11/29/17 Range/Units 05:30 WBC 6.8 (4.3-11.1) K/mcL Hgb 9.4 L (12.9-16.9) g/dL Hct 28.7 L (37.5-50.1) % Plt Count 227 (140-400) K/mcL Neutrophils # 4.6 (1.6-8.9) K/mcL BMP 11/29/17 05:30 Sodium 137 Potassium 4.2 Chloride 101 Carbon Dioxide 28 BUN 12 Creatinine 0.85 Glucose 138 H Calcium 9.0 Hemoglobin is now increased to 9.4. - VTE Documentation of Mechanical Device: Graduated compression elastic hosiery Consult Discharge Plan - Plan Referrals: Dejan Meehan MD [Primary Care Provider] -
[2017-11-29] MEDS: Gabapentin 300 MG CAPSULE PO SCH ×3 (08:02→21:19)
[2017-11-29] MEDS: Metoprolol XL (24 HR) Succ 50 MG TAB.ER.24H PO SCH (08:02)
[2017-11-29] MEDS: Multivit/Ca/Min/Fe/FA 1 TAB TABLET PO SCH (08:02)
[2017-11-29] MEDS: *HR* Metformin 500 MG TABLET PO SCH ×2 (08:03→17:55)
[2017-11-29] MEDS: *HR* OxyCODONE Immed Rel 5 MG TABLET PO SCH (10:20)
[2017-11-29] MEDS: Hyoscyamine SL 0.125 MG TAB.SUBL SL SCH ×2 (10:20→21:19)
[2017-11-30] MEDS: *HR* OxyCODONE Immed Rel 5 MG TABLET PO PRN ×5 (01:22→21:00)
[2017-11-30] MEDS: Amoxicillin/Clavulanate 500 MG TABLET PO SCH ×3 (01:22→16:44)
[2017-11-30] MEDS: *HR* Enoxaparin 40 MG/0.4 ML SYRINGE SQ SCH (05:54)
[2017-11-30] MEDS: *HR* Metformin 500 MG TABLET PO SCH ×2 (08:35→16:44)
[2017-11-30] MEDS: Hyoscyamine SL 0.125 MG TAB.SUBL SL SCH ×2 (08:35→20:59)
[2017-11-30] MEDS: Multivit/Ca/Min/Fe/FA 1 TAB TABLET PO SCH (08:35)
[2017-11-30] MEDS: Gabapentin 300 MG CAPSULE PO SCH ×3 (08:36→20:59)
[2017-11-30] MEDS: Metoprolol XL (24 HR) Succ 50 MG TAB.ER.24H PO SCH (08:36)
--- NOTE | 2017-11-30 18:12 | Internal Med Progress Note ---
Date of Encounter: 11/30/17 Time of Encounter: 18:07 - Assessment and plan (1) Status post total hip replacement, right Current Visit: Yes Status: Acute Assessment and plan: He is doing well status post right hip replacement. Pain appears be under reasonable control by his history. He is advancing with his therapies. Discharge date planned for with a safety visit at that time. (2) History of pneumonia Current Visit: Yes Status: Acute Assessment and plan: Lungs are clear. He states that she off oral antibiotics. (3) Acute kidney injury Current Visit: Yes Status: Resolved Assessment and plan: Resolved. (4) Diabetes mellitus Current Visit: Yes Status: Chronic Assessment and plan: Sugars are under reasonable control Qualifiers: Diabetes mellitus type: type 2 Diabetes mellitus alf insulin use: without silk opener use Diabetes mellitus complication status: with unspecified complications Qualified Code(s): E11.8 - Type 2 diabetes mellitus with unspecified complications (5) Hypertension Current Visit: Yes Status: Chronic Assessment and plan: Hypertension is under appropriate control Qualifiers: Hypertension type: essential hypertension Qualified Code(s): I10 - Essential (primary) hypertension (6) History of heart artery stent Current Visit: Yes Status: Chronic Assessment and plan: No angina or CHF (7) Acute blood loss anemia Current Visit: Yes Status: Acute Assessment and plan: Hemoglobin is stable (8) DVT prophylaxis Current Visit: Yes Status: Acute - Subjective Interval history: Patient he said he is doing well. He feels that he is advancing. He is walking better with the step through gait. He denies any cardiac or respiratory symptoms. Denies any abdominal or urinary symptoms. He still complains of right anterior thigh pain which muscle relaxer works the best for this. There is some confusion as to when he should have his pain medication and typically he and the nurse have some disagreements, but he told me that he gets his pain pill about only twice a day but the muscle relaxer 3 times a day. He states he is no longer on restrictions getting out of bed. He has showered twice on his own/independently. - Constitutional Vitals: Temp Pulse Resp BP Pulse Ox 98.2 F 83 22 139/77 95 11/30/17 07:00 11/30/17 07:00 11/30/17 07:00 11/30/17 07:00 11/30/17 07:00 General appearance: Present: A&O X 3, pleasant, obese, answers questions appropriately - Respiratory Respiratory exam: Present: CTAB - Cardiovascular Cardiovascular exam: Present: RRR, +S1, +S2, systolic murmur (1/6 systolic murmur) - Extremities Exam Extremities exam: Absent: calf tenderness, pedal edema, tenderness - Incison Comments: I did not check his incision today Internal Medicine: Result - Labs CBC & Chem 7: 11/29/17 05:30 11/29/17 05:30 - VTE Documentation of Mechanical Device: Graduated compression elastic hosiery Consult Discharge Plan - Plan Referrals: Dejan Meehan MD [Primary Care Provider] -
[2017-12-01] MEDS: *HR* OxyCODONE Immed Rel 5 MG TABLET PO PRN ×5 (00:57→19:56)
[2017-12-01] MEDS: Amoxicillin/Clavulanate 500 MG TABLET PO SCH ×3 (00:57→17:52)
[2017-12-01] MEDS: *HR* Enoxaparin 40 MG/0.4 ML SYRINGE SQ SCH (05:53)
[2017-12-01] MEDS: Gabapentin 300 MG CAPSULE PO SCH ×3 (08:39→19:58)
[2017-12-01] MEDS: Metoprolol XL (24 HR) Succ 50 MG TAB.ER.24H PO SCH (08:39)
[2017-12-01] MEDS: Hyoscyamine SL 0.125 MG TAB.SUBL SL SCH ×2 (08:40→20:01)
[2017-12-01] MEDS: Multivit/Ca/Min/Fe/FA 1 TAB TABLET PO SCH (08:40)
[2017-12-01] MEDS: *HR* Metformin 500 MG TABLET PO SCH ×2 (08:40→17:52)
--- NOTE | 2017-12-01 09:33 | Internal Med Progress Note ---
Date of Encounter: 12/01/17 Time of Encounter: 09:28 - Assessment and plan (1) Status post total hip replacement, right Current Visit: Yes Status: Acute Assessment and plan: Advancing with his therapies. Plan for discharge tomorrow. We will arrange x- ray of the hip to save him from getting this at Dr. Herrera's office. Pain control is appropriate. Dressing and incision look appropriate (2) History of pneumonia Current Visit: Yes Status: Acute Assessment and plan: No pulmonary symptoms. Lungs are clear. He will be finishing off his oral antibiotics. (3) Acute kidney injury Current Visit: Yes Status: Resolved Assessment and plan: Resolved (4) Diabetes mellitus Current Visit: Yes Status: Chronic Assessment and plan: Under appropriate control Qualifiers: Diabetes mellitus type: type 2 Diabetes mellitus group home insulin use: without equipment operator intermodal yard use Diabetes mellitus complication status: with unspecified complications Qualified Code(s): E11.8 - Type 2 diabetes mellitus with unspecified complications (5) Hypertension Current Visit: Yes Status: Chronic Assessment and plan: Under good control Qualifiers: Hypertension type: essential hypertension Qualified Code(s): I10 - Essential (primary) hypertension (6) History of heart artery stent Current Visit: Yes Status: Chronic Assessment and plan: No angina or CHF (7) Acute blood loss anemia Current Visit: Yes Status: Acute Assessment and plan: Hemoglobin increased (8) DVT prophylaxis Current Visit: Yes Status: Acute - Subjective Interval history: Patient feels like he is advancing. He is looking forward to going home tomorrow. Today he is working on stairs. He states his pain control appears to be appropriate. Denies any cardiac, respiratory GI or symptoms. - Constitutional Vitals: Temp Pulse Resp BP Pulse Ox 98.7 F 62 16 127/54 95 12/01/17 07:26 12/01/17 07:26 11/30/17 18:58 12/01/17 07:26 12/01/17 07:26 General appearance: Present: A&O X 3, pleasant, obese, answers questions appropriately - Respiratory Respiratory exam: Present: CTAB - Cardiovascular Cardiovascular exam: Present: RRR, +S1, +S2 - Extremities Exam Extremities exam: Absent: calf tenderness, tenderness Additional comments: Right lower extremity shows residual bruising in his calf. Slight edema on the right side compared to the left but appropriate. Right buttock shows mild induration and mild bruising but no signs of infection or significant tenderness. His incision is covered with honeycomb dressing with 2 large dried blood spots that no signs of infection at this time. Internal Medicine: Result - Labs CBC & Chem 7: 11/29/17 05:30 11/29/17 05:30 - VTE Documentation of Mechanical Device: Graduated compression elastic hosiery Consult Discharge Plan - Plan Referrals: Dejan Meehan MD [Primary Care Provider] -
[2017-12-02] MEDS: Amoxicillin/Clavulanate 500 MG TABLET PO SCH ×2 (00:21→08:50)
[2017-12-02] MEDS: *HR* OxyCODONE Immed Rel 5 MG TABLET PO PRN ×2 (00:22→05:49)
[2017-12-02] MEDS: *HR* Enoxaparin 40 MG/0.4 ML SYRINGE SQ SCH (05:47)
[2017-12-02 06:55] VITALS: BP 125/67
[2017-12-02] MEDS: Gabapentin 300 MG CAPSULE PO SCH (08:50)
[2017-12-02] MEDS: Hyoscyamine SL 0.125 MG TAB.SUBL SL SCH (08:50)
[2017-12-02] MEDS: *HR* Metformin 500 MG TABLET PO SCH (08:50)
[2017-12-02] MEDS: Multivit/Ca/Min/Fe/FA 1 TAB TABLET PO SCH (08:50)
[2017-12-02] MEDS: Metoprolol XL (24 HR) Succ 50 MG TAB.ER.24H PO SCH (08:51)
--- NOTE | 2017-12-02 10:54 | Discharge Summary ---
- NOTES TO OUTPATIENT PROVIDER Notes to Outpatient Provider: #1. Follow-up with Dr. Herrera's office has been arrange. #2. Outpatient physical therapy will be continued at [facility] Date of Encounter: 12/02/17 Time of Encounter: 10:49 - Discharge Diagnosis (1) Status post total hip replacement, right Priority: Primary Status: Acute Comments: Patient underwent total right hip replacement after having had pain and an occult fracture for up to 2 or 3 months. Postoperatively he had complications of anemia and pneumonia. He came to our facility for inpatient rehabilitation. He has done extremely well. He has advanced with his PT and OT and recreational therapy to the point where he will be able and safe to be discharged to home today. He told me he is having a home safety visit as well today. His pain control is good with oxycodone 3-4 times per day. Biggest complaint is muscle spasm which is relieved with prn use of cyclobenzaprine/Flexeril. He is ambulating with a walker. He has learned to do stairs safely. He is eating well. Vitals been stable. He will be discharged to home and have outpatient physical therapy arranged. His incision looks good except for 3 large spots of dried blood. It is affecting less than 50% of the dressing so we will remain intact. He sees Dr. Herrera's office tomorrow. Follow-up x-ray showed good alignment without complication. (2) History of pneumonia Priority: Secondary Status: Acute Comments: Patient postoperative pneumonia. When transferred our unit he was on Augmentin and finished the 7 more days of that. His lungs are clear has had no pulmonary symptoms. (3) Acute kidney injury Priority: Secondary Status: Resolved Comments: Acute kidney injury postoperatively has now resolved. He is eating well and taking plenty of fluids. No further intervention needed we can recheck as an outpatient. (4) Diabetes mellitus Priority: Secondary Status: Chronic Comments: Patient has a chronic history of diabetes mellitus. His sugars have been ranging in the low 100s during this stay. He will maintain his usual oral medication at home and follow up visit planned at my office. Qualifiers: Diabetes mellitus type: type 2 Diabetes mellitus detention insulin use: without detention use Diabetes mellitus complication status: with unspecified complications Qualified Code(s): E11.8 - Type 2 diabetes mellitus with unspecified complications (5) Hypertension Priority: Secondary Status: Chronic Comments: Hypertension has has been under good control with his usual medications. Qualifiers: Hypertension type: essential hypertension Qualified Code(s): I10 - Essential (primary) hypertension (6) History of heart artery stent Priority: Secondary Status: Chronic Comments: Has a history of previous CAD and stent placement. He has had no cardiac symptoms, no angina or CHF during hospital stay. (7) Acute blood loss anemia Priority: Secondary Status: Acute Comments: Patient had postop anemia and required blood transfusion prior to transfer to our facility. His blood count here is now up to 9.4. No melena or medical easy. Likely the blood loss was postop and has extensive bruising in the right lateral thigh down to the foot. Hemodynamically stable and did not require further intervention (8) DVT prophylaxis Priority: Secondary (Patient received Lovenox while in our facility. Postop orders from Dr. Herrera's office includes aspirin 325 mg daily.) Status: Acute Hospital course: Mr. Gutierrez is a 66 year old male with a cold right femoral neck fracture had right total hip replacement by Dr. Herrera. He was transferred to a rehabilitation center for therapies. See the above diagnoses. He is ready for discharge to home today. He sees Dr. Herrera tomorrow in follow-up. Discharge discussed with: patient - Time Spent with Patient Total time spent providing and/or coordinating discharge services: - Discharge Medications Prescriptions: Aspirin 325 mg PO BID #20 tablet Cyclobenzaprine [Flexeril] 5 mg PO TID PRN #90 tablet PRN Reason: Spasms Ferrous Sulfate 325 mg PO BID #60 tablet Home Medications: Allopurinol [Zyloprim] 300 mg PO HS 11/17/17 [History] Atorvastatin Calcium [Lipitor] 40 mg PO HS 11/17/17 [History] Citalopram Hydrobromide [Citalopram HBr] 20 mg PO HS 11/17/17 [History] Clopidogrel Bisulfate [Plavix] 75 mg PO HS 11/17/17 [History] Gabapentin [Neurontin] 600 mg PO TID 11/17/17 [History] Hyoscyamine Sulfate [Hyoscyamine Sulfate ER] 0.375 mg PO BID 11/17/17 [History] Losartan Potassium [Cozaar] 50 mg PO BID 11/17/17 [History] Metformin HCl [Glucophage] 1,000 mg PO BID 11/17/17 [History] Metoprolol Succinate 100 mg PO DAILY 11/17/17 [History] Multivitamin [One Daily Multivitamin] 1 tab PO DAILY 11/17/17 [History] Pantoprazole Sodium [Protonix] 40 mg PO HS 11/17/17 [History] OxyCODONE Immed Rel [Roxicodone 5 MG] 5 mg PO Q6HR PRN 7 Days #28 tablet [Rx] Aspirin 325 mg PO BID #20 tablet 12/02/17 [Rx] Cyclobenzaprine [Flexeril] 5 mg PO TID PRN #90 tablet 12/02/17 [Rx] Ferrous Sulfate 325 mg PO BID #60 tablet 12/02/17 [Rx] Allergies/Adverse Reactions: 3 Allergy/AdvReac Type Severity Reaction Status Date / Time lisinopril Allergy Cough Verified 08/09/15 07:25 Date of admission: 11/24/17 21:41 Primary care physician: Dejan Meehan MD Consults: 11/25/17 03:14 Consult to Occupational Therapy [CONS] Routine Comment: Evaluate, develop and implement POC Reason for Consult: weakness- s/p right total hip Does patient have active BEDREST order?: No Is patient medically & hemodynamically stable?: Yes Consult to Physical Medicine/Rehab [CONS] Routine Reason for Consult: weakness- s/p right total hip Call Completed: No Consult to Physical Therapy [CONS] Routine Comment: Evaluate, develop and implement POC Reason for Consult: weakness- s/p right total hip Does patient have active BEDREST order?: No Is patient medically & hemodynamically stable?: Yes Consult to Recreational Therapy [CONS] Routine Comment: Evaluate, develop and implement POC Consult to District Fire Chief [CONS] Routine Reason for SW Consult: discharge planning Discharging clinician: Dejan Meehan Anticipated date of discharge: 12/02/17 - Constitutional Vitals: Temp Pulse Resp BP Pulse Ox 97.6 F 70 16 125/67 93 12/02/17 06:50 12/02/17 06:50 12/02/17 06:50 12/02/17 06:50 12/02/17 06:50 General appearance: Present: A&O X 3, pleasant, obese, answers questions appropriately - Respiratory Respiratory exam: Present: CTAB - Cardiovascular Cardiovascular exam: Present: RRR, +S1, +S2 - GI/Abdominal GI/Abdominal exam: Absent: hepatomegaly, splenomegaly, tenderness - Extremities Exam Additional comments: Mildly swollen right lower extremity compared to the left. Minimal bruising residual from surgery. No significant tenderness. No signs of infection. - Incison Comments: The honeycomb dressing and clear overlay is still intact. 3 areas of dried blood noted but less than 50% of the dressing. Appropriate induration surrounding but no signs of infection. - Patient Status Disposition: Home, Self-Care Condition: Good Functional capacity at discharge: uses cane/walker Overall status at discharge: patient is progressing back to baseline - Discharge Instructions Follow Up With: Dejan Meehan MD [Primary Care Provider] - 01/21/18 Alessandro Herrera MD [Partnered Physician] - 12/03/17 - Diet and Activity Activity: ambulate only with your walker Diet: diabetic diet, low fat, low cholesterol - VTE Documentation of Mechanical Device: Graduated compression elastic hosiery
== END 2017-12-02 12:10 | disposition home or self-care (01) | DRG 559 ==
LOC: INPGRE 21:41
PROVIDERS: ADMIT Family Medicine; ATTEND Family Medicine

== ENCOUNTER 2019-04-03 10:41 | Inpatient (IN) ==
[2019-04-03] MEDS: Gabapentin 300 MG CAPSULE PO SCH ×2 (16:33→21:16)
[2019-04-03] MEDS: *HR* Metformin 500 MG TABLET PO SCH (16:33)
[2019-04-03] MEDS: Cholestyramine 4 GM POWD.PACK PO SCH (18:16)
[2019-04-03] MEDS: Hyoscyamine SL 0.125 MG TAB.SUBL SL SCH (21:16)
[2019-04-03] MEDS: *HR* OxyCODONE Immed Rel 5 MG TABLET PO PRN (21:17)
[2019-04-04] MEDS: *HR* Enoxaparin 40 MG/0.4 ML SYRINGE SQ SCH (06:27)
[2019-04-04] MEDS: *HR* OxyCODONE Immed Rel 5 MG TABLET PO PRN ×2 (06:36→13:16)
[2019-04-04] MEDS: Hyoscyamine SL 0.125 MG TAB.SUBL SL SCH ×2 (09:24→21:41)
[2019-04-04] MEDS: Multivit/Ca/Min/Fe/FA 1 TAB TABLET PO SCH (09:25)
[2019-04-04] MEDS: Gabapentin 300 MG CAPSULE PO SCH ×4 (09:25→21:41)
[2019-04-04] MEDS: Aspirin 81 MG TAB.CHEW PO SCH (09:25)
[2019-04-04] MEDS: Metoprolol XL (24 HR) Succ 50 MG TAB.ER.24H PO SCH (09:25)
[2019-04-04] MEDS: *HR* Metformin 500 MG TABLET PO SCH ×2 (09:25→17:19)
[2019-04-04] MEDS: Cholestyramine 4 GM POWD.PACK PO SCH (11:28)
[2019-04-04] MEDS: *HR* OxyCODONE Immed Rel 5 MG TABLET PO SCH ×2 (17:19→21:40)
[2019-04-05] MEDS: *HR* OxyCODONE Immed Rel 5 MG TABLET PO SCH ×4 (01:00→13:10)
[2019-04-05 05:57] LABS: Hemoglobin 7.8 g/dL (12.9-16.9)
[2019-04-05] MEDS: *HR* Enoxaparin 40 MG/0.4 ML SYRINGE SQ SCH (06:21)
[2019-04-05] MEDS: Metoprolol XL (24 HR) Succ 50 MG TAB.ER.24H PO SCH (08:18)
[2019-04-05] MEDS: *HR* Metformin 500 MG TABLET PO SCH ×2 (08:18→16:58)
[2019-04-05] MEDS: Multivit/Ca/Min/Fe/FA 1 TAB TABLET PO SCH (08:18)
[2019-04-05] MEDS: Aspirin 81 MG TAB.CHEW PO SCH (08:18)
[2019-04-05] MEDS: Hyoscyamine SL 0.125 MG TAB.SUBL SL SCH ×2 (08:18→19:45)
[2019-04-05] MEDS: Gabapentin 300 MG CAPSULE PO SCH ×4 (08:18→19:45)
[2019-04-05] MEDS: *HR* OxyCODONE Immed Rel 5 MG TABLET PO PRN ×2 (14:27→19:46)
[2019-04-06] MEDS: *HR* OxyCODONE Immed Rel 5 MG TABLET PO PRN ×5 (04:00→20:50)
[2019-04-06 05:25] LABS: Basophils % 0.3 %; Eosinophils # 0.3 K/mcL (0.0-0.6); Eosinophils % 4.5 %; Hematocrit 24.4 % (37.5-50.1); Hemoglobin 7.7 g/dL (12.9-16.9); Immature Granulocytes % 0.6 % (0-4); Lymphocytes # 1.4 K/mcL (0.6-4.6); Lymphocytes % 21.2 %; Mean Corpuscular HGB Conc 31.6 g/dL (31.6-35.5); Mean Corpuscular Hemoglobin 29.5 pg (28.0-33.3); Mean Corpuscular Volume 93.5 fL (83.0-100.0); Monocytes # 0.6 K/mcL (0.0-1.3); Monocytes % 9.7 %; Neutrophils # 4.1 K/mcL (1.6-8.9); Platelet Count 160 K/mcL (140-400); Red Blood Count 2.61 M/mcL (4.19-5.50); Segmented Neutrophils % 63.7 %; White Blood Count 6.4 K/mcL (4.3-11.1)
[2019-04-06] MEDS: *HR* Enoxaparin 40 MG/0.4 ML SYRINGE SQ SCH (05:36)
[2019-04-06] MEDS: Multivit/Ca/Min/Fe/FA 1 TAB TABLET PO SCH (08:30)
[2019-04-06] MEDS: *HR* Metformin 500 MG TABLET PO SCH ×2 (08:30→17:04)
[2019-04-06] MEDS: Aspirin 81 MG TAB.CHEW PO SCH (08:30)
[2019-04-06] MEDS: Gabapentin 300 MG CAPSULE PO SCH ×4 (08:30→20:50)
[2019-04-06] MEDS: Metoprolol XL (24 HR) Succ 50 MG TAB.ER.24H PO SCH (08:30)
[2019-04-06] MEDS: Hyoscyamine SL 0.125 MG TAB.SUBL SL SCH ×2 (08:31→20:50)
[2019-04-07] MEDS: *HR* OxyCODONE Immed Rel 5 MG TABLET PO PRN ×5 (01:54→21:48)
[2019-04-07 05:15] LABS: Hemoglobin 7.5 g/dL (12.9-16.9)
[2019-04-07] MEDS: *HR* Enoxaparin 40 MG/0.4 ML SYRINGE SQ SCH (06:39)
[2019-04-07] MEDS: Metoprolol XL (24 HR) Succ 50 MG TAB.ER.24H PO SCH (08:41)
[2019-04-07] MEDS: Hyoscyamine SL 0.125 MG TAB.SUBL SL SCH ×2 (08:41→21:48)
[2019-04-07] MEDS: Gabapentin 300 MG CAPSULE PO SCH ×4 (08:41→21:48)
[2019-04-07] MEDS: *HR* Metformin 500 MG TABLET PO SCH ×2 (08:42→17:11)
[2019-04-07] MEDS: Multivit/Ca/Min/Fe/FA 1 TAB TABLET PO SCH (08:42)
[2019-04-07] MEDS: Aspirin 81 MG TAB.CHEW PO SCH (08:42)
[2019-04-08] MEDS: *HR* OxyCODONE Immed Rel 5 MG TABLET PO PRN ×2 (03:36→07:58)
[2019-04-08] MEDS: *HR* Enoxaparin 40 MG/0.4 ML SYRINGE SQ SCH (05:13)
[2019-04-08 07:11] VITALS: BP 115/68
[2019-04-08] MEDS: Metoprolol XL (24 HR) Succ 50 MG TAB.ER.24H PO SCH (07:57)
[2019-04-08] MEDS: Gabapentin 300 MG CAPSULE PO SCH (07:57)
[2019-04-08] MEDS: Hyoscyamine SL 0.125 MG TAB.SUBL SL SCH (07:57)
[2019-04-08] MEDS: *HR* Metformin 500 MG TABLET PO SCH (07:57)
[2019-04-08] MEDS: Multivit/Ca/Min/Fe/FA 1 TAB TABLET PO SCH (07:58)
[2019-04-08] MEDS: Aspirin 81 MG TAB.CHEW PO SCH (07:58)
== END 2019-04-08 11:42 | disposition home health service (06) | DRG 560 ==
LOC: INPGRE 13:31
PROVIDERS: ADMIT Family Medicine; ATTEND Family Medicine